=== PATIENT | male | born 1950 | race Caucasian/White ===

== ENCOUNTER 2022-09-06 14:55 | Outpatient (CLI) | payer OTHER | END 2022-09-06 15:11 | disposition home or self-care (01) | LOC: RAD 14:55 | PROVIDERS: ATTEND Internal Medicine | DX: M25.511 Pain in right shoulder (principal); M54.2 Cervicalgia; M54.17 Radiculopathy, lumbosacral region ==

== ENCOUNTER → 2022-09-20 | Outpatient (CLI) | payer OTHER | END | disposition home or self-care (01) | LOC: NUCLEAR 10:57 | PROVIDERS: ATTEND Internal Medicine | DX: G45.9 Transient cerebral ischemic attack, unspecified (principal); E78.00 Pure hypercholesterolemia, unspecified ==

== ENCOUNTER → 2022-09-28 | Outpatient (CLI) | payer OTHER | END | disposition home or self-care (01) | LOC: MRI 07:13 | PROVIDERS: ATTEND Internal Medicine | DX: M54.17 Radiculopathy, lumbosacral region (principal); M54.2 Cervicalgia; G45.9 Transient cerebral ischemic attack, unspecified | CPT/HCPCS: 70551; 72141; 72148 ==